=== PATIENT | female | born 1985 | race Caucasian/White ===

== ENCOUNTER → 2016-09-29 | Outpatient (CLI) | payer OTHER ==
--- NOTE | 2016-09-15 13:00 | US ---
EXAMINATION TYPE: US OB anatomy transabd DATE OF EXAM: 09/15/2016 10:55 AM COMPARISON: NONE HISTORY: LGA, TECHNIQUE: Transabdominal (TA) EXAM MEASUREMENTS: GESTATIONAL AGE / DATING Physician Established: (19 weeks/ 2 days) EDC: 02/07/2017 Dates by LMP: (19 weeks/ 2 days) EDC: 02/07/2017 Dates by First Scan: today Dates by Current Scan: (19 weeks/ 2 days) EDC: 02/07/2017 SURVEY IUP: Single PLACENTA: Anterior PREVIA: No previa MELISSA: 13.2 cm Normal CERVICAL LENGTH (transabdominal: norm > 3.0cm): 6.2 cm with well distended bladder BIOMETRY PRESENTATION: Breech LIE: Transverse lie with head maternal Left BPD: 4.4 cm 19 weeks / 2 days HC: 16.3 cm 19 weeks / 0 days AC: 14.2 cm 19 weeks / 4 days FL: 2.9 cm 19 weeks / 0 days ESTIMATED WEIGHT IN GRAMS: 283.01 grams ESTIMATED WEIGHT IN LBS/OZS: 0 lbs. 10 oz. WEIGHT PERCENTAGE BASED ON ESTABLISHED DATE: 44.2 % HC/AC: 1.14 normal FL/AC: 20.48 normal HEART RATE: 128 bpm RHYTHM: Normal ANATOMY SEEN (within normal limits): * Lateral Vent (< 1 cm) = 0.6cm * Cisterna Magna (< 1.1 cm) = 0.4cm * Nuchal Fold (< 0.6 cm) = 0.3cm * Cerebellum (varies with age) = 2.1cm Choroid Plexus (bilateral) Midline Falx Cavus Septi Pellucidi Four Chamber Heart Outflow tracts: LVOT/RVOT Stomach Situs Diaphragm Kidneys (bilateral) Bladder Cord Insert Three Vessel Cord Longitudinal Spine Transverse Spine Arms (bilateral) Legs (bilateral) ANATOMY NOT SEEN: Nose / Lips: early jaw was seen, but optimal evaluation is after 20 weeks gestation, outflow tracts s omewhat limited TECHNOLOGIST IMPRESSION: single, live, IUP,19 weeks/ 2 days, EDC: 02/07/2017, HR 128bpm IMPRESSION: Single viable intrauterine corresponding to an ultrasound age 19 weeks 2 days estimated valencia e of delivery 07 Feb 2017, limited exam
--- NOTE | 2016-09-30 11:10 | US ---
EXAMINATION TYPE: US OB Call Back DATE OF EXAM: 09/29/2016 9:40 AM COMPARISON: Prior OB ultrasound September 15, 2016 CLINICAL HISTORY: OB Callback for nose/lips. Incomplete anatomical survey. GESTATIONAL AGE / DATING Dates by Initial Survey Scan: (21 weeks/2 days) EDC: 02/07/2017 HEART RATE: 139 bpm RHYTHM: Normal ANATOMY SEEN (second anatomic survey look): Lateral Vent (< 1 cm):0.6 cm Cervical length is within normal limits. There is no evidence of placenta previa on current study. Th ere is satisfactory four-chamber heart visualization. Pulmonary outflow tracts are felt within normal limits during real-time scanning, still images are somewhat suboptimal due to difficulty in saving o r documenting. nose and lips are felt within normal limits seen best on image 22. There are fel t within normal limits during real-time scanning per technologist. IMPRESSION: As above.
== END | disposition home or self-care (01) ==
LOC: RADUSWWP 09-15 09:57
PROVIDERS: ATTEND Obstetrics & Gynecology
DX: O36.62X0 Maternal care for excessive fetal growth, second trimester, not applicable or unspecified (principal); Z3A.19 19 weeks gestation of pregnancy
CPT/HCPCS: 76811

== ENCOUNTER → 2016-11-09 | Outpatient (CLI) | payer OTHER ==
[2016-11-09 12:03] LABS: CH 29.7; CHCM 33.7; HCT 36.6 % (34.0-46.0); HDW 3.19; HGB 12.2 gm/dL (11.4-16.0); MCH 29.4 pg (25.0-35.0); MCHC 33.2 g/dL (31.0-37.0); MCV 88.6 fL (80.0-100.0); Mean Platelet Volume 10.9; RBC 4.13 m/uL (3.80-5.40); RDW 14.5 % (11.5-15.5); WBC 5.5 k/uL (3.8-10.6)
== END | disposition home or self-care (01) ==
LOC: LABWHC1 10:46
PROVIDERS: ATTEND Obstetrics & Gynecology
DX: Z34.82 Encounter for supervision of other normal pregnancy, second trimester (principal); Z3A.00 Weeks of gestation of pregnancy not specified
CPT/HCPCS: 36415; 82950; 85027

== ENCOUNTER → 2016-11-12 | Outpatient (CLI) | payer OTHER ==
[2016-11-12 12:44] LABS: Glucose 3 Hour, Gest 94 mg/dL
== END | disposition home or self-care (01) ==
LOC: LABWHC1 08:30
PROVIDERS: ATTEND Obstetrics & Gynecology
DX: O99.810 Abnormal glucose complicating pregnancy (principal); Z3A.00 Weeks of gestation of pregnancy not specified
CPT/HCPCS: 36415; 82951; 82952

== ENCOUNTER → 2016-11-24 | Outpatient (CLI) | payer OTHER ==
[2016-11-24 11:32] LABS: CH 29.4; CHCM 33.5; HCT 37.2 % (34.0-46.0); HDW 3.36; HGB 12.4 gm/dL (11.4-16.0); MCH 29.4 pg (25.0-35.0); MCHC 33.2 g/dL (31.0-37.0); MCV 88.4 fL (80.0-100.0); Mean Platelet Volume 9.7; RBC 4.21 m/uL (3.80-5.40); RDW 14.7 % (11.5-15.5); WBC 9.2 k/uL (3.8-10.6)
== END ==
LOC: LABWHC1 10:38
PROVIDERS: ATTEND Obstetrics & Gynecology
DX: Z34.83 Encounter for supervision of other normal pregnancy, third trimester (principal)
CPT/HCPCS: 36415; 85027

== ENCOUNTER 2017-02-01 10:07 | Inpatient (IN) | payer OTHER ==
[2017-02-01] MEDS ORDERED: CLINDAMYCIN 600 MG in DEXTROSE 5% IN WATER 50 ML IVPB STA ×2 (10:14)
[2017-02-01] MEDS ORDERED: CITRIC ACID-SODIUM CITRATE 15 ML CUP PO ONE (10:14)
[2017-02-01 11:03] VITALS: BMI 37.5
[2017-02-01] MEDS: LACTATED RINGERS 1,000 ML IV SCH ×2 (11:11→16:00)
[2017-02-01 11:19] LABS: Basophils % (A) 1 %; CHCM 33.5; Eosinophils # (A) 0.1 k/uL (0-0.7); Eosinophils % (A) 2 %; HCT 37.8 % (34.0-46.0); HDW 3.14; HGB 12.6 gm/dL (11.4-16.0); Large Platelets Flag Slight; Luc # (Auto) 0.17; Luc % (Auto) 3; Lymphocytes # (A) 1.5 k/uL (1.0-4.8); Lymphocytes % (A) 23 %; MCH 28.9 pg (25.0-35.0); MCHC 33.2 g/dL (31.0-37.0); Mean Platelet Volume 11.4; Monocytes # (A) 0.4 k/uL (0-1.0); Monocytes % (A) 6 %; Neutrophils # (A) 4.3 k/uL (1.3-7.7); Neutrophils % (A) 67 %; RBC 4.35 m/uL (3.80-5.40); RDW 15.5 % (11.5-15.5); WBC 6.4 k/uL (3.8-10.6); WBC (Perox) 6.61
[2017-02-01 12:04] LABS: Manual Review Performed
[2017-02-01 12:06] LABS: Large Platelets Present; RBC Morphology Normal
[2017-02-01] MEDS ORDERED: MORPHINE SULFATE (PF) 0.3 MG/0.3 ML SYR ONE (12:12)
[2017-02-01] MEDS ORDERED: OXYTOCIN 10 UNIT/ML 1 ML VIAL ONE (12:12)
[2017-02-01] MEDS ORDERED: ePHEDrine 50 MG/ML 1 ML AMP ONE (12:12)
[2017-02-01] MEDS ORDERED: ONDANSETRON 4 MG/2 ML VIAL ONE (12:12)
[2017-02-01] MEDS ORDERED: NALBUPHINE 10 MG/ML AMPUL ONE (12:12)
[2017-02-01] MEDS ORDERED: diphenhydrAMINE 50 MG/ML 1 ML VIAL IVP PRN ×3 (12:33→12:56)
[2017-02-01] MEDS ORDERED: NALBUPHINE 10 MG/ML AMPUL IV PRN (12:33)
[2017-02-01] MEDS ORDERED: NALOXONE 0.4 MG/ML 1 ML VIAL IV PRN ×2 (12:33→12:56)
[2017-02-01] MEDS ORDERED: ONDANSETRON 4 MG/2 ML VIAL IVP PRN ×2 (12:33→12:56)
[2017-02-01] MEDS ORDERED: MORPHINE SULFATE 4 MG/ML SYRINGE IVP PRN (12:33)
[2017-02-01] MEDS ORDERED: METOCLOPRAMIDE 5 MG/ML 2 ML VIAL IVP PRN (12:56)
[2017-02-01] MEDS ORDERED: diphenhydrAMINE 50 MG CAP PO PRN (12:56)
[2017-02-01] MEDS ORDERED: SIMETHICONE 80 MG CHEWABLE PO PRN (12:56)
[2017-02-01] MEDS ORDERED: diphenhydrAMINE 25 MG CAP PO PRN (12:56)
[2017-02-01] MEDS ORDERED: ZOLPIDEM 5 MG TAB PO PRN (12:56)
[2017-02-01] MEDS ORDERED: Acetaminophen-Codeine 300-30mg TAB PO PRN ×2 (12:56)
[2017-02-01] MEDS ORDERED: ACETAMINOPHEN TAB 325 MG TAB PO PRN (12:56)
--- NOTE | 2017-02-01 12:59 | P.HPOB ---
History of Present Illness H&P Date: 02/01/17 Chief Complaint: Intrauterine with prior section: Family planning Federica is a 31-year-old at 39 weeks gestation who arrives for repeat low transverse section with tubal ligation. Her course has been unremarkable and she is feeling well at this time. Risks/benefits/alternatives to this procedure were discussed with the patient in detail and all questions are answered for her prior to proceeding to the operating room. Pertinent labs do include A+ blood type, rubella was immune, hepatitis B surface antigen groupie strep RPR were all negative. On physical exam vital signs are stable and afebrile. Heart regular, lungs clear, extremities without pain. Abdomen is soft gravid uterus is noted.. heart tones are in the 140s and reactive. Assessment intrauterine at term with 2 prior sections and family planning Plan repeat low transverse section with bilateral tubal ligation Past Medical History Past Medical History: No Reported History History of Any Multi-Drug Resistant Organisms: None Reported Past Surgical History: Section Past Anesthesia/Blood Transfusion Reactions: Motion Sickness Past Psychological History: No Psychological Hx Reported Smoking Status: Former smoker Past Alcohol Use History: None Reported Additional Past Alcohol Use History / Comment(s): smoked 5 years 1/2ppd quit 2001 Past Drug Use History: None Reported - Past Family History Mother Family Medical History: No Reported History Medications and Allergies Home Medications Medication Instructions Recorded Confirmed Type Pnv with Ca,No.72/Iron/FA 1 tab PO DAILY 01/27/17 02/01/17 History [ Plus Tablet] Allergies Allergy/AdvReac Type Severity Reaction Status Date / Time cephalexin [From Keflex] Allergy Rash/Hives Verified 02/01/17 10:15 Exam Osteopathic Statement: *. No significant issues noted on an osteopathic structural exam other than those noted in the History and Physical/Consult. - Vital Signs Vital signs: Vital Signs Temp Pulse Resp BP 02/01/17 10:54 97.5 F L 78 16 133/73 Intake and Output 01/31/17 02/01/17 02/01/17 22:59 06:59 14:59 Other: Weight 108.862 kg Patient Weight 02/02/17 06:59 Weight 108.862 kg Results Result Diagrams: 02/01/17 11:05 Abnormal Lab Results - Last 24 Hours (Table) 02/01/17 Range/Units 11:05 Plt Count 118 L (150-450) k/uL
--- NOTE | 2017-02-01 13:03 | P.OP ---
Date of Procedure: 02/01/17 Preoperative Diagnosis: Intrauterine at term: Prior sections: Family planning Postoperative Diagnosis: Same Procedure(s) Performed: Repeat low transverse section via Pfannenstiel: Bilateral partial salpingectomy Implants: Anesthesia: spinal Surgeon: Jonathan Mendez Estimated Blood Loss (ml): 700 IV fluids (ml): 800 Urine output (ml): 200 Pathology: other (Placenta) Condition: stable Disposition: floor Indications for Procedure: Operative Findings: Female scores of 8 and 9 at one and 5 minutes respectively and weight of 7 lbs. 12 oz. Description of Procedure: She was taken to the operating suite where a spinal anesthetic was found be adequate. She was prepped and draped in the normal sterile fashion and placed in the dorsal supine position with leftward tilt. Initially a Pfannenstiel skin incision was made. This incision was then carried through to underlying layer of the fascia was second knife. Fascia was then nicked in the midline and this opening was extended laterally with Florian scissors. Superior and inferior aspect of this incision were then grasped tented up and bluntly and sharply dissected off the rectus muscles. Rectus muscles were then divided midline and sharp dissection through the peritoneum was made. This opening was then extended superiorly and inferiorly with good visualization of both bowel bladder. Bladder blade was then placed and the vesicouterine peritoneum was identified and entered sharply with Metzenbaum scissors. This opening was then extended across the face of the uterus with Metzenbaum scissors and her bladder flap was digitally created. Knife was then used to incise uterus. Once incision is made hemostatic used to enter the uterus completely and the incision was extended bluntly and head was then H medically delivered mouth nares were bulb suctioned. Nuchal cord 1 was easily reduced an anterior and posterior shoulders were gently delivered followed by the remainder the baby. The umbilical cord was then clamped cut usual fashion an nursery personnel was present to assume care. Placenta was then delivered intact and Pitocin was added to the IV. Uterus was then exteriorized cleared of clots and debris and closed in 1 layer with 0 Vicryl suture. Once excellent hemostasis was obtained fully tubes were identified first the right tube than the left tube had a window created in the mesosalpinx. 2 proximal and 2 distal 2-0 silk sutures were then placed into occluded the tubes and intervening approximately 2 cm segment was excised. TIPS were then cauterized and blood and debris was suctioned from the posterior cul-de-sac. Uterus was then reinserted into the abdomen and the peritoneal layer was reapproximated with 0 Vicryl suture. Fascial layer was then closed Lobac suture and 3-0 Vicryl was used to reapproximate the skin and close the space. 3-0 Vicryl on a Junaid needle was then used to close the skin. Sponge, lap, needle counts were all correct 2. Patient was then taken to the recovery room in stable and satisfactory condition.
[2017-02-01] MEDS: KETOROLAC 30 MG/ML 1 ML VIAL IVP PRN (17:25)
[2017-02-01] MEDS: SENNOSIDES-DOCUSATE SODIUM 1 EACH TAB PO SCH (21:43)
[2017-02-02] MEDS: KETOROLAC 30 MG/ML 1 ML VIAL IVP PRN (02:42)
[2017-02-02] MEDS: SENNOSIDES-DOCUSATE SODIUM 1 EACH TAB PO SCH ×2 (07:50→20:18)
[2017-02-02 08:02] LABS: Basophils % (A) 0 %; CH 28.4; CHCM 32.6; Eosinophils # (A) 0.1 k/uL (0-0.7); Eosinophils % (A) 2 %; HCT 35.8 % (34.0-46.0); HDW 3.09; HGB 11.9 gm/dL (11.4-16.0); Luc # (Auto) 0.15; Luc % (Auto) 2; Lymphocytes % (A) 16 %; MCH 29.1 pg (25.0-35.0); MCHC 33.2 g/dL (31.0-37.0); MCV 87.8 fL (80.0-100.0); Mean Platelet Volume 10.9; Monocytes # (A) 0.4 k/uL (0-1.0); Monocytes % (A) 6 %; Neutrophils # (A) 4.7 k/uL (1.3-7.7); Neutrophils % (A) 73 %; RBC 4.08 m/uL (3.80-5.40); RDW 15.5 % (11.5-15.5); WBC 6.4 k/uL (3.8-10.6); WBC (Perox) 6.67
--- NOTE | 2017-02-02 09:01 | P.PNOBGPC ---
Subjective - Subjective Principal diagnosis: Postoperative 1 Interval history: Doing very well. She is ambulating, voiding and she is tolerating her diet. She voices no complaints. Vital signs stable and afebrile. Heart regular, lungs clear, extremities without pain. Abdomen is soft uterus is firm and lochia is reported be light. Assessment postop day 1. Plan continue care. Patient reports: Reports appetite normal, Reports voiding normally, Reports pain well controlled, Reports ambulating normally : doing well Objective - Vital Signs Latest vital signs: Vital Signs Temp Pulse Resp BP Pulse Ox 02/02/17 04:00 97.9 F 74 15 105/62 02/02/17 02:44 98 02/01/17 23:36 97 02/01/17 23:33 98.0 F 71 15 117/78 02/01/17 21:14 97 02/01/17 19:00 97.6 F 76 20 112/67 96 02/01/17 17:33 96 02/01/17 17:00 97.6 F 80 20 125/75 96 02/01/17 16:00 97.6 F 80 20 125/75 96 02/01/17 15:33 98.1 F 124 H 52 H 02/01/17 15:06 86 16 133/63 02/01/17 14:17 71 16 123/61 96 02/01/17 14:02 99 16 130/65 97 02/01/17 13:47 88 16 146/73 98 02/01/17 13:33 85 16 116/68 97 02/01/17 13:17 97 16 121/69 02/01/17 13:02 97.0 F L 92 16 122/73 98 02/01/17 10:54 97.5 F L 78 16 133/73 Intake and Output 02/01/17 02/02/17 02/02/17 22:59 06:59 14:59 Intake Total 526 5 Output Total 600 1050 Balance -74 -1045 Intake: IV 263 5 Invasive Line 1 263 5 Intake, IV Titration 263 Amount Lactated Ringers 1,000 ml 263 @ 125 mls/hr IV .Q8H JUANY Rx#:[id number] Output: Urine 600 1050 Other: # Voids 1 - Labs Labs: Abnormal Lab Results - Last 24 Hours (Table) 05/22/17 05/23/17 Range/Units 11:05 07:39 Plt Count 118 L 114 L (150-450) k/uL
[2017-02-02] MEDS: IBUPROFEN 600 MG TAB PO PRN ×2 (09:29→20:27)
[2017-02-03] MEDS: SENNOSIDES-DOCUSATE SODIUM 1 EACH TAB PO SCH ×2 (07:59→21:12)
[2017-02-03] MEDS: IBUPROFEN 600 MG TAB PO PRN ×2 (07:59→19:17)
--- NOTE | 2017-02-03 08:45 | P.PNOBGPC ---
Subjective - Subjective Principal diagnosis: Postop day 2 Interval history: Overall malaise doing very well. She is ambulating and voiding. She is tolerating her diet. She is passing flatus. Vital signs are stable and afebrile. Heart regular, lungs clear, extremities without pain. Abdomen is soft uterus is firm and incision is intact and clean and dry. Assessment postop day 2. Plan continue current care. Patient reports: Reports appetite normal, Reports voiding normally, Reports pain well controlled, Reports ambulating normally : doing well Objective - Vital Signs Latest vital signs: Vital Signs Temp Pulse Resp BP Pulse Ox 02/03/17 00:00 97.7 F 64 12 105/53 02/02/17 16:00 98.7 F 76 16 130/72 97 02/02/17 12:00 98.3 F 75 16 99 Intake and Output 02/02/17 02/03/17 02/03/17 22:59 06:59 14:59 Other: # Voids 1 # Bowel Movements 0
[2017-02-03] MEDS: LACTATED RINGERS 1,000 ML IV SCH ×3 (21:08→21:09)
[2017-02-04 02:25] VITALS: RESP 18
[2017-02-04] MEDS: IBUPROFEN 600 MG TAB PO PRN (04:20)
--- NOTE | 2017-02-04 10:59 | P.DS ---
Providers Date of admission: 02/01/17 10:07 Expected date of discharge: 02/04/17 Attending physician: Jonathan Mendez Primary care physician: Stated None Hospital Course: Federica is doing very well postop day 3. She is ambulating, voiding, and she is tolerating her diet. She voices no complaints. Vital signs are stable and afebrile. Heart regular, lungs clear, extremities without pain. Abdomen is soft uterus is firm incision is clean dry and intact. Assessment postop day 3. Plan discharged home follow up with me in 1 week. Prescription for Motrin has been provided and all of the questions are answered for her prior to discharge discharge instructions were also thoroughly reviewed. Patient Condition at Discharge: Good Plan - Discharge Summary New Discharge Prescriptions: Ibuprofen [Motrin] 600 mg PO Q6HR PRN #30 tab PRN Reason: Pain Discharge Medication List Pnv,Calcium 72/Iron/Folic Acid [ Plus Tablet] 1 tab PO DAILY 01/27/17 [ History] Ibuprofen [Motrin] 600 mg PO Q6HR PRN #30 tab 02/04/17 [Rx] Follow up Appointment(s)/Referral(s): Jonathan Mendez DO [Doctor of Osteopathic Medicine] - 1 Week Activity/Diet/Wound Care/Special Instructions: No heavy lifting, limit stairs and driving and pelvic rest. If any high temperatures, heavy bleeding, or severe pain call my office
[2017-02-04 12:24] VITALS: BP 142/74; PULSE 92; TEMP 98.7
[2017-02-04] MEDS: SENNOSIDES-DOCUSATE SODIUM 1 EACH TAB PO SCH (12:24)
== END 2017-02-04 14:14 | disposition home or self-care (01) | DRG 766 ==
LOC: 4FBP 10:07
PROVIDERS: ADMIT Obstetrics & Gynecology; ATTEND Obstetrics & Gynecology
PROC: 10D00Z1 Extraction of Products of Conception, Low, Open Approach (ICD-10-PCS; principal; 2017-02-01 12:26)
PROC: 0UB70ZZ Excision of Bilateral Fallopian Tubes, Open Approach (ICD-10-PCS; principal; 2017-02-01 12:26)
DX: O34.211 Maternal care for low transverse scar from previous cesarean delivery (principal); Z88.1 Allergy status to other antibiotic agents; Z37.0 Single live birth; Z87.891 Personal history of nicotine dependence; Z30.2 Encounter for sterilization; Z3A.39 39 weeks gestation of pregnancy
CPT/HCPCS: 85025; 86850; 86900; 86901; 88302; 88307

== ENCOUNTER → 2020-07-25 | Outpatient (CLI) | payer OTHER ==
[2020-07-25 14:42] LABS: HCT 46.4 % (34.0-46.0); MCH 28.3 pg (25.0-35.0); MCHC 32.3 g/dL (31.0-37.0); MCV 87.5 fL (80.0-100.0); Mean Platelet Volume 9.5; Platelet Count 195 k/uL (150-450); WBC 7.7 k/uL (3.8-10.6)
[2020-07-25 21:36] LABS: African American GFR (CKD) 109.9 (60.0-200.0); Non-African American GFR(CKD) 94.8 (60.0-200.0)
== END | disposition home or self-care (01) ==
LOC: LABWHC1 13:34
PROVIDERS: ATTEND Obstetrics & Gynecology Gynecology
DX: D25.9 Leiomyoma of uterus, unspecified (principal); N92.0 Excessive and frequent menstruation with regular cycle
CPT/HCPCS: 36415; 82565; 85027

== ENCOUNTER → 2020-08-02 | Outpatient (CLI) | payer OTHER ==
--- NOTE | 2020-08-02 10:26 | CT ---
EXAMINATION TYPE: CT abdomen pelvis w con DATE OF EXAM: 08/02/2020 COMPARISON: None HISTORY: abnormal US, ovarian mass, abnormal menses CT DLP: 1774.7 mGycm CONTRAST: CT scan of the abdomen and pelvis is performed with Oral Contrast and with IV Contrast, patient injec katie with 100 mL of Isovue 300. FINDINGS: LUNG BASES-: No visible nodule. No infiltrate. LIVER/GB: No calcified gallstones. No space occupying hepatic lesion. Biliary tree is of normal ca liber. PANCREAS: No inflammation. No distinct mass. SPLEEN: No splenic enlargement. No lesion seen. ADRENALS: No nodule. No thickening. KIDNEYS/BLADDER: No hydronephrosis. No nephrolithiasis. No distinct renal mass. Urinary bladder g rossly unremarkable. BOWEL: Normal appendix. Normal bowel caliber. No inflammation. GENITAL ORGANS: Lobulated appearance of the uterus is suspicious for underlying leiomyomatous change . Fullness of the left ovary measuring 2.5 cm. Right ovarian cyst measuring 2.4 cm. No evidence for f ree fluid. LYMPH NODES: No greater than 1cm abdominal or pelvic lymph nodes are appreciated. AORTA: No significant abnormality. OSSEOUS STRUCTURES: No significant abnormality is seen. OTHER: No significant additional abnormality is seen. IMPRESSION: 1. Probable leiomyomatous change. Right ovarian cyst and fullness of the left ovary. Correlate with u ltrasound.
== END | disposition home or self-care (01) ==
LOC: RADCTMAIN 08:07
PROVIDERS: ATTEND Obstetrics & Gynecology Gynecology
DX: N83.201 Unspecified ovarian cyst, right side (principal); R19.09 Other intra-abdominal and pelvic swelling, mass and lump
CPT/HCPCS: 74177; Q9967